=== PATIENT | male | born 1945 | race Caucasian/White ===

== ENCOUNTER 2017-08-27 10:01 | Emergency (ER) | payer OTHER ==
[~2017-08-27] VITALS: Ht 182.9 cm; Wt 89.0 kg
[~2017-08-27 10:01] MED LIST: ASPI81TA82 PO; ATOR20TA PO; CARV6.252 PO; DIAZ5TAB PO; GLUCTAB PO; LOSA50TA PO; OMEP20TA39 PO; PERC10TA27 PO; PRAS10TA PO; SILD20TA PO; VITATAB25 PO; WELL150T PO; ZANTTAB9 PO
[2017-08-27 10:07] VITALS: BP 168/80; PULSE 97; RESP 16; TEMP 98; O2SAT 95
[2017-08-27] MEDS ORDERED: CARV6.252 PO (10:36)
[2017-08-27] MEDS ORDERED: ATOR80TA45 PO (10:36)
[2017-08-27] MEDS ORDERED: DIAZ5 (10:36)
[2017-08-27] MEDS ORDERED: ASPI1TAB57 PO (10:36)
[2017-08-27] MEDS ORDERED: METF500T PO (10:36)
[2017-08-27] MEDS ORDERED: VITA100064 PO (10:36)
[2017-08-27] MEDS ORDERED: SODIUM CHLORIDE 0.9% FLUSH 10 ML FLUSH IVF PRN (11:45)
[2017-08-27] MEDS ORDERED: MORPHINE SULFATE 4 MG/ML INJ IV PUSH ONE (11:45)
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
[2017-08-27 12:07] LABS: AUTOMATED NEUTROPHIL # 7.4 TH/MM3 (1.8-7.7); BASOPHIL # 0.2 TH/MM3 (0-0.2); BASOPHIL % 1.6 % (0.0-2.0); EOSINOPHIL # 0.1 TH/MM3 (0-0.4); EOSINOPHIL % 1.1 % (0.0-4.0); HEMOGLOBIN 14.7 GM/DL (13.0-17.0); LYMPH % 22.8 % (9.0-44.0); LYMPHOCYTE # 2.5 TH/MM3 (1.0-4.8); MEAN CELL VOLUME 82.8 FL (80.0-100.0); MEAN CORPUSCULAR HGB CONC 32.7 % (32.0-36.0); MEAN PLATELET VOLUME 10.1 FL (7.0-11.0); MONO % 6.2 % (0.0-8.0); MONOCYTE # 0.7 TH/MM3 (0-0.9); NEUT % 68.3 % (16.0-70.0); PLATELET COUNT 219 TH/MM3 (150-450); RED BLOOD COUNT 5.43 MIL/MM3 (4.50-5.90); RED CELL DISTRIBUTION WIDTH 14.6 % (11.6-17.2); WHITE BLOOD COUNT 10.9 TH/MM3 (4.0-11.0)
[2017-08-27 12:14] LABS: CHLORIDE 107 MEQ/L (98-107); SODIUM (NA) 139 MEQ/L (136-145)
[2017-08-27 12:19] LABS: ALBUMIN 3.4 GM/DL (3.4-5.0); BICARBONATE 26.4 MEQ/L (21.0-32.0); BLOOD UREA NITROGEN 19 MG/DL (7-18); GLUCOSE,RANDOM 226 MG/DL (74-106); INTERNATIONAL NORMALIZED RATIO 1.1 RATIO; MAGNESIUM 2.3 MG/DL (1.5-2.5); PROTHROMBIN TIME - PATIENT 10.7 SEC (9.8-11.6)
[2017-08-27 12:20] VITALS: BP 103/61; PULSE 86; RESP 16; O2SAT 95
[2017-08-27 12:22] LABS: ALT (GPT) 27 U/L (12-78); AST (GOT) 18 U/L (15-37); GLOMERULAR FILTRATION RATE 66 ML/MIN (>89)
[2017-08-27 12:24] LABS: TOTAL BILIRUBIN ADULT 1.6 MG/DL (0.2-1.0); TOTAL PROTEIN 6.8 GM/DL (6.4-8.2)
[2017-08-27 12:25] LABS: ALKALINE PHOSPHATASE 123 U/L (45-117)
[2017-08-27 12:27] LABS: TROPONIN I 0.05 NG/ML (0.02-0.05)
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
--- NOTE | 2017-08-27 12:57 | RADRPT ---
EXAM DATE/TIME: 08/27/2017 12:34 [facility] COMPARISON: No previous studies available for comparison. INDICATIONS : Fell and hit head. Right frontal abraisons and dizziness. RADIATION DOSE: 61.70 CTDIvol (mGy) MEDICAL HISTORY : Cardiovascular disease. Hypertension. Diabetes. SURGICAL HISTORY : Coronary artery stent. ENCOUNTER: Initial ACUITY: 2 days PAIN SCALE: 5/10 LOCATION: Right frontal TECHNIQUE: Multiple contiguous axial images were obtained of the head. Using automated exposure control and adj ustment of the mA and/or kV according to patient size, radiation dose was kept as low as reasonably a chievable to obtain optimal diagnostic quality images. DICOM format image data is available electro nically for review and comparison. FINDINGS: CEREBRUM: Mild diffuse cerebral atrophy. The ventricles are normal for degree of atrophy. No evidence of midli ne shift, mass lesion, hemorrhage or acute infarction. No extra-axial fluid collections are seen. POSTERIOR FOSSA: The cerebellum and brainstem are intact. The 4th ventricle is midline. The cerebellopontine angle i s unremarkable. EXTRACRANIAL: The visualized portion of the orbits is intact. SKULL: The calvaria is intact. No evidence of skull fracture. CONCLUSION: 1. Senescent changes without acute intracranial abnormality. Ruddy Matthews MD on August 27, 2017 at 12:53 Board Certified Radiologist. This report was verified electronically.
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
[2017-08-27 13:05] VITALS: BP 115/68; PULSE 87; RESP 16; O2SAT 95
[2017-08-27 14:17] VITALS: BP 141/83; PULSE 92; RESP 16; O2SAT 96
[2017-08-27] MEDS ORDERED: NORC5TAB PO (14:32)
--- NOTE | 2017-08-27 20:38 | EKG ---
Date Performed: 08/27/2017 Time Performed: 10:59:53 PTAGE: 72 years EKG: Sinus rhythm MODERATE T-WAVE ABNORMALITY, CONSIDER LATERAL ISCHEMIA ABNORMAL ECG NO PREVIOUS TRACING DOCTOR: Avni Smith Interpretating Date/Time 08/27/2017 20:37:37
== END 2017-08-27 15:04 | disposition home or self-care (01) ==
LOC: PHED 10:01
DX: R06.02 Shortness of breath (principal); I48.91 Unspecified atrial fibrillation; E11.9 Type 2 diabetes mellitus without complications; I10 Essential (primary) hypertension; R94.31 Abnormal electrocardiogram [ECG] [EKG]; Y08.89XA Assault by other specified means, initial encounter; Y92.89 Other specified places as the place of occurrence of the external cause
CPT/HCPCS: 70450; 70486; 71046; 80053; 82550; 82552; 83735; 83880; 84484; 85025; 85610; 85730; 93005; 96374; 99285; J2270